=== PATIENT | female | born 1945 | race Caucasian/White ===

== ENCOUNTER → 2022-12-17 | Outpatient (REF) | payer MEDICARE, OTHER | LOC: M SFHCDERM 17:13 | PROVIDERS: ATTEND Nurse Practitioner Family | DX: I78.1 Nevus, non-neoplastic (principal) ==

== ENCOUNTER → 2023-01-07 | Outpatient (REF) | payer MEDICARE, OTHER | LOC: M LAB REF 15:54 | PROVIDERS: ATTEND Surgery | DX: L90.5 Scar conditions and fibrosis of skin (principal) ==

== ENCOUNTER → 2023-03-06 | Outpatient (CLI) | payer MEDICARE, OTHER | LOC: M RAD 09:44 | PROVIDERS: ATTEND Otolaryngology | DX: J01.10 Acute frontal sinusitis, unspecified (principal) ==